=== PATIENT | female | born 1970 | race Caucasian/White ===

== ENCOUNTER 2017-09-01 11:26 | Day surgery (SDC) | payer OTHER ==
[2017-09-01] MEDS ORDERED: PROPOFOL 20 ML ×3 (13:50)
[2017-09-01] MEDS ORDERED: PROPOFOL 60 ML (13:50)
[2017-09-01] MEDS ORDERED: FENTAnyl 50 MCG/ML VIAL ×2 (13:59→14:41)
[2017-09-01] MEDS ORDERED: ROCURONIUM 50 MG INJ (14:00)
[2017-09-01] MEDS ORDERED: LIDOCAINE 2% (SDV) 5 ML INJ (14:01)
[2017-09-01] MEDS ORDERED: ONDANSETRON 4 MG INJ (14:01)
[2017-09-01] MEDS ORDERED: MIDAZOLAM 1 MG/ML 2 ML INJ (14:04)
[2017-09-01] MEDS ORDERED: DEXAMETHASONE 4 MG/ML 1 ML INJ (14:22)
[2017-09-01] MEDS ORDERED: SUGAMMADEX SODIUM 200 MG/2 ML VIAL IV (14:56)
[2017-09-01] MEDS ORDERED: NALOXONE (0.4 MG/ML) INJ ×2 (14:57)
[2017-09-01] MEDS ORDERED: OXYCODONE/ACETAMINOPHEN (5/325) TAB PO (15:30)
[2017-09-01] MEDS ORDERED: FENTAnyl 50 MCG/ML VIAL IV ×3 (15:30)
[2017-09-01] MEDS ORDERED: ONDANSETRON 4 MG INJ IV (15:30)
[2017-09-01] MEDS ORDERED: HYDROmorphONE (0.2 MG/ML) 10ML SYG IV ×2 (15:30)
[2017-09-01] MEDS: LIDOCAINE 1%/EPI 30 ML INJ (15:43)
[2017-09-01] MEDS: POLYMYXIN/BACITRACIN 1L IRRIG (15:43)
[2017-09-01] MEDS: HYDROmorphONE (0.2 MG/ML) 10ML SYG IV (15:57)
== END 2017-09-01 17:58 | disposition home or self-care (01) ==
LOC: SDS 11:26
DX: S63.641D Sprain of metacarpophalangeal joint of right thumb, subsequent encounter (principal); W19.XXXD Unspecified fall, subsequent encounter
CPT/HCPCS: 26540